=== PATIENT | female | born 1945 | race Caucasian/White ===

== ENCOUNTER 2024-05-13 05:47 | Day surgery (SDC) | payer MEDICARE, OTHER ==
[2024-05-13] MEDS ORDERED: Dexamethasone 20 MG/5 ML VIAL ONE (06:22)
[2024-05-13] MEDS ORDERED: Rocuronium Bromide 10 MG/ML (10ML VIAL) ONE (06:22)
[2024-05-13] MEDS ORDERED: Lidocaine 1% PF 5 ML VIAL ONE (06:22)
[2024-05-13] MEDS ORDERED: Ondansetron PF 4 MG/2 ML Vial ONE (06:22)
[2024-05-13] MEDS ORDERED: fentaNYL 50 mcg/mL 1 mL Vial ONE ×4 (06:22→09:08)
[2024-05-13] MEDS ORDERED: PROPOFOL 20 ML ONE (06:22)
[2024-05-13 06:34] LABS: Hematocrit 43.6 % (34.9-44.5); Hemoglobin 14.2 g/dL (12.0-15.5); Mean Corpuscular HGB CONC 32.6 g/dL (32.0-36.0); Mean Corpuscular Hemoglobin 32.6 pg (27.0-33.0); Mean Platelet Volume 10.6 fL (7.4-10.4); Platelet Count 204 10x3/uL (150-450); RBC Distribution Width 13.6 % (11.5-14.5); Red Blood Cell (RBC) Count 4.36 10x6/uL (3.90-5.03); White Blood Cell (WBC) Count 5.7 10x3/uL (3.5-10.5)
[2024-05-13 06:42] LABS: Anion Gap 14 mmol/L (10-20); BUN (Urea Nitrogen) 16 mg/dL (9.8-20.1); Calc. Creatinine Clearance 0 mL/min (70-130); Calcium 9.4 mg/dL (7.8-10.44); Carbon Dioxide 26 mmol/L (23-31); Chloride 106 mmol/L (98-107); Estimated GFR 46; Glucose 141 mg/dL (83-110); Potassium 4.4 mmol/L (3.5-5.1); Sodium 142 mmol/L (136-145)
[2024-05-13] MEDS ORDERED: CEFAZOLIN 2 GM VIAL ONE (06:47)
[2024-05-13] MEDS ORDERED: ePHEDrine Sulfate 50 MG/10 ML VIAL ONE (07:21)
[2024-05-13] MEDS ORDERED: Mupirocin 2% Ointment 22 GM Tube ONE (07:45)
[2024-05-13] MEDS ORDERED: SUGAMMADEX SODIUM 200 MG/2 ML VIAL ONE (08:09)
[2024-05-13] MEDS ORDERED: HYDROcodone/Acetaminophen 5/325 mg Tablet ONE ×2 (09:38→10:32)
[2024-05-13] MEDS ORDERED: Ondansetron ODT 4 MG TAB ONE (10:06)
== END 2024-05-13 10:50 | disposition home or self-care (01) ==
LOC: CSHSDC 05:47
PROVIDERS: ATTEND Otolaryngology Plastic Surgery within the Head & Neck
PROC: 0CT90ZZ Resection of Left Parotid Gland, Open Approach (ICD-10-PCS; principal; 2024-05-13)
DX: D11.0 Benign neoplasm of parotid gland (principal); K11.8 Other diseases of salivary glands; E11.9 Type 2 diabetes mellitus without complications; E03.9 Hypothyroidism, unspecified; G47.33 Obstructive sleep apnea (adult) (pediatric); I25.10 Atherosclerotic heart disease of native coronary artery without angina pectoris; I48.91 Unspecified atrial fibrillation; E66.9 Obesity, unspecified; Z79.899 Other long term (current) drug therapy; Z98.49 Cataract extraction status, unspecified eye; I82.819 Embolism and thrombosis of superficial veins of unspecified lower extremity
CPT/HCPCS: 42415; 80048; 85027; J1100; J2405; J2704; J3010; Q0162; 36415; 88305; 88341; 88342